=== PATIENT | male | born 1965 | race Caucasian/White ===

== ENCOUNTER 2018-06-27 12:28 | Emergency (ER) | payer OTHER ==
[~2018-06-27] VITALS: Ht 182.9 cm; Wt 81.6 kg
[2018-06-27 12:33] VITALS: Ht 182.9 cm; Wt 81.6 kg
[2018-06-27 13:26] VITALS: BP 138/88
== END 2018-06-27 13:26 | disposition other institution (70) ==
LOC: ED 12:28
DX: Z02.89 Encounter for other administrative examinations (principal)